=== PATIENT | female | born 1975 | race Caucasian/White ===

== ENCOUNTER 2021-12-07 07:08 | Day surgery (SDC) | payer BC, SELFPAY ==
[2021-12-07] VITALS (11 sets, daily range): BP systolic 104–142; BP diastolic 51–92; PULSE 80–98; RESP 12–20; TEMP 36.4–36.9; O2SAT 94–100
--- NOTE | ~2021-12-07 | CT_ITS ---
EXAMINATION: CT abdomen pelvis w con DATE: 12/07/2021 08:34 INDICATION: Low abdominal pain. TECHNIQUE: Computed tomography (CT) of the abdomen and pelvis was performed with 100 mL Omnipaque 350 intravenous contrast. Automated exposure control and iterative reconstruction technique were employe d. The dose-length product was 1087.52 mGy-cm. COMPARISON: CT abdomen and pelvis 08/15/2011 FINDINGS: The visualized portions of the lung bases demonstrate mild atelectasis. No pleural effusion . The heart size is normal. No pericardial effusion. There is diffuse hepatic steatosis. The gallblad sinai, spleen, pancreas, adrenal glands are normal. There is cortical thinning of the kidneys. There is diverticulosis of the colon without evidence of diverticulitis. There are no dilated loops of bowel. There is gas in the lumen of the base of the appendix. The diameter of the appendix is 10 mm. There is scarring adjacent to the appendix. There are no pathologically enlarged lymph nodes. There is no f ree intraperitoneal fluid. There is severe lower lumbar spondylosis. There are Schmorl's nodes at mul tiple levels. IMPRESSION: 1. Appendiceal diameter of 10 mm, which is indeterminate for acute appendicitis. Reviewed, dictated and finalized at location A. IMPRESSION: 1. Appendiceal diameter of 10 mm, which is indeterminate for acute appendicitis .
--- NOTE | 2021-12-07 07:34 | ED.GENADULT ---
HPI - General Adult General Chief complaint: Abdominal Pain Stated complaint: lower abd pain Time Seen by Provider: 12/07/21 07:14 History of Present Illness HPI narrative: 46-year-old female presenting to the emergency department for evaluation of lower abdominal cramping. Patient states symptoms did start yesterday. Patient does report associated nausea vomiting. Patient states that sometimes she has the urge to have a bowel movement but cannot. Patient states this is not new to today. Patient did have diagnosis of a perforated appendix but had a drain placed and did not have surgery to remove the appendix. Patient was supposed to schedule an appointment to have an outpatient appendectomy but states that she canceled it. Patient was in May and she was treated at [facility]. Patient did not have follow-up for her appendectomy because she was feeling improved. Related Data Allergies Allergy/AdvReac Type Severity Reaction Status Date / Time No Known Allergies Allergy Mild Verified 12/07/21 07:20 Review of Systems Review of Systems: CONSTITUTIONAL: Denies fever, chills, or sweats. EYES: Denies visual changes, redness, or discharge. ENT: Denies rhinorrhea, congestion, sore throat, or otalgia. CARDIOVASCULAR: Denies chest pain, palpitations, or edema. RESPIRATORY: Denies cough or dyspnea. GASTROINTESTINAL: Lower abdominal pain with associated nausea vomiting GENITOURINARY: Denies dysuria or hematuria. SKIN: Denies rash or itching. MUSCULOSKELETAL: Denies back pain, joint pain, or myalgia. NEUROLOGIC: Denies headache, numbness, or weakness. [facility] Past Medical History Medical History (Updated 12/07/21 @ 17:20 by Mark Davey MD) Hypertension Mixed hyperlipidemia Obesity (BMI 30-39.9) Tobacco abuse Surgical History Surgical History History of colonoscopy with polypectomy August 2021 Family History Family History Other Diabetes mellitus Hypertension Social History Social History Years smoked: 22 Smoking status: Current every day smoker Tobacco type: cigarettes Second hand tobacco smoke exposure: Yes Alcohol intake: current Alcohol use details: Socially Substance use: never Substance use type: does not use Living arrangements: with family Occupation/Education: occupation Additional occupation/education comments: [employer] Gender identity (if verbalized by the patient): Female Sexual Orientation (if Verbalized by the Patient): Straight or Heterosexual Spiritual care concerns: No Agree to blood products: Yes Exam Narrative: APPEARANCE: Well appearing, no pain, no distress, well-nourished. HEAD: normocephalic, atraumatic. EYES: PERRLA/EOMI, conjunctivae clear. NOSE: Normal no drainage NECK: Supple. No adenopathy, no masses. RESPIRATORY: Airway patent, respirations nonlabored. Clear to auscultation bilaterally, no rales, rhonchi, wheezing. CARDIOVASCULAR: Regular rate and rhythm without murmurs rubs or gallops. ABDOMINAL: Soft, lower abdominal tenderness to palpation MUSCULOSKELETAL: Moves all extremities. Strength/ROM intact, No edema, No calf tenderness. NEURO: Alert. Cranial nerves II through XII intact. Grossly intact SKIN: Warm, dry. Normal Color Course Course Emergency Course: Case was discussed with surgery due to her previous history of appendicitis and current CT scan I possible appendicitis. Patient was treated with Zosyn. Vital Signs Vital signs: Vital Signs Temperature 97.9 F 12/07/21 07:20 Pulse Rate 98 12/07/21 07:20 Respiratory Rate 16 12/07/21 07:20 Blood Pressure 142/92 H 12/07/21 07:20 Pulse Oximetry 100 12/07/21 07:20 Temperature 97.5 F L 12/07/21 13:52 Pulse Rate 80 12/07/21 13:52 Respiratory Rate 20 12/07/21 13:52 Blood Pressure 1
[2021-12-07 07:38] LABS: Appearance Urine Clear (Clear); Bilirubin Urine Negative (Negative); Blood Urine 2+ (Negative); Color Urine Yellow (Yellow); Glucose Urine UA Negative (Negative); Ketones Urine Negative (Negative); Leukocyte Esterase Ur Negative LEU/UL (Negative); Nitrate Urine Negative (Negative); Protein Urine 3+ mg/dL (Negative); Urobilinogen Urine 0.2 mg/dL (<2.0); pH Urine 5.5 (5.0-9.0)
[2021-12-07 07:42] LABS: Add Urine Microscopic? YES
[2021-12-07 07:43] LABS: Mucus Urine Few /lpf; Squamous Epithelial Cell Urine Few /hpf (Few)
[2021-12-07 08:09] LABS: Basophils Absolute Auto 0.1 K/mm3 (0.0-0.1); Basophils Percent Auto 0.9 % (0.2-1.2); Eosinophils Absolute Auto 0.2 K/mm3 (0-0.3); Eosinophils Percent Auto 1.9 % (0-4.4); Hematocrit 45.9 % (37.0-47.0); Hemoglobin 15.4 g/dL (12.0-15.0); Immature Granulocyte Absolute 0.09 K/mm3 (0.00-0.031); Immature Granulocyte Percent A 0.9 % (0-0.5); Lymphocytes Absolute Auto 3.16 K/mm3 (0.9-3.2); Lymphocytes Percent Auto 30.8 % (18.3-44.2); Mean Corpuscular HGB Conc 33.6 g/dl (32-36); Mean Corpuscular Hemoglobin 30.7 pg (26-34); Mean Corpuscular Volume 91.4 fl (80-100); Mean Platelet Volume 10.1 fl (7.4-10.4); Monocytes Absolute Auto 0.5 K/mm3 (0.1-0.6); Monocytes Percent Auto 5.3 % (2.6-8.5); Neutrophils Absolute Auto 6.2 K/mm3 (1.3-6.7); Neutrophils Percent Auto 60.2 % (45.5-73.1); Platelet Count Result 306 k/mm3 (150-375); Red Blood Count 5.02 M/mm3 (4.2-5.4); Red Cell Distribution Width 13.9 % (11.5-14.5); White Blood Count 10.3 K/mm3 (4.5-10.0)
[2021-12-07 08:18] LABS: Alanine Aminotransferase 30 U/L (6-35); Albumin Level 4.4 g/dL (3.5-5.1); Alkaline Phosphatase 91 U/L (38-126); Anion Gap 15 mmol/L (8-16); Aspartate Amino Transferase 34 U/L (14-36); Bilirubin,Total 0.5 mg/dL (0.2-1.3); Blood Urea Nitrogen 13 mg/dL (7-17); Carbon Dioxide 23 mmol/L (22-30); Chloride 101 mmol/L (98-107); Estimated CRCL calculation 83 ml/min; Estimated Glomerular Filt Rate > 60; Glucose 117 mg/dL (65-110); Lipase 57 U/L (23-300); Potassium 4.2 mmol/L (3.4-5.0); Sodium 139 mmol/L (137-145)
[2021-12-07] MEDS: SODIUM CHLORIDE 0.9% IV 1,000 ML 999 ML IV CONT (09:46)
--- NOTE | 2021-12-07 09:47 | PM.HPGS ---
History of Present Illness History of Present Illness Consent: Risks, benefits, and alternatives have been discussed and questions answered. Patient agrees to proceed with procedure. Chief complaint: lower abd pain Narrative: Shekhar Vega is a 46 year old female with a history of hypertension, who was treated for acute perforated appendicitis with abscess in May of 2021 at [facility]. She was hospitalized for 12 days with IV antibiotics and had transgluteal percutaneous drainage of an intra-abdominal abscess. The drain was eventually removed. She was followed up by surgery as an outpatient. She underwent a colonoscopy with benign polypectomy of rectal polyps at [facility] in August of 2021. She reports being told her appendix still appeared inflamed and ?infected?. She was not given any additional antibiotics. Reviewing the colonoscopy report, there is no abnormalities mentioned of the appendix or cecum. She has otherwise been told she has been healing well. They had repeated a CT scan in October, that reportedly showed she was still healing but no other issues. They offered her surgery that could be scheduled this month, but she declined due to starting a new job. She chose to monitor and watch for symptoms. Last night, around midnight, she noticed an onset of mild lower abdominal pain. She was able to go to sleep, but when she woke up this morning, her abdominal pain was worse. She had associated nausea, but no vomiting. No fever or chills. Her pain felt similar to her previous episode of appendicitis, therefore she came to [facility] for evaluation. Labs showed a white blood cell count of 10,300. Urinalysis showed 3+ protein, 2+ blood, 6-10 rbc's, 4-6 wbc's, few epithelial squamous cells. She denies any dysuria, hematuria, frequency, or urgency. She no longer has periods and was told she is premenopausal. CT scan of the abdomen and pelvis showed an appendix dilated to 10 mm with scarring. Other incidental findings noted. Our service was consulted by the ED physician. She is now seen in the ER. Her abdominal pain is tolerable when lying still, but is aggravated by movement, palpation, and bending. No previous abdominal surgeries. Review of Systems Review of Systems: All systems reviewed & are unremarkable except as noted in HPI and below Constitutional: Constitutional: Reports as per HPI, Reports no additional constitutional complaints, Denies chills, Denies fatigue and Denies fever(s) Eyes: Eyes: Reports no additional eye complaints ENT: Reports system reviewed and no additional complaints, except as documented and Reports Normal hearing present Cardiovascular: Cardiovascular: Reports no additional cardiovascular complaints, Denies chest pain and Denies leg edema Respiratory: Respiratory: Reports no additional respiratory complaints, Denies cough and Denies dyspnea Gastrointestinal: Gastrointestinal: Reports as per HPI, Reports no additional gastrointestinal complaints, Reports abdominal pain, Denies bloating, Denies hematochezia, Denies change in bowel habits, Denies change in stool character, Denies constipation, Denies diarrhea, Denies loose stools, Reports nausea and Denies vomiting Genitourinary: Genitourinary: Reports no additional female genitourinary complaints, Denies hematuria, Denies nocturia and Denies dysuria Musculoskeletal: Musculoskeletal: Reports no additional musculoskeletal complaints and Denies back pain Integumentary/Breasts: Skin/Breast: Reports system reviewed and no additional complaints, except as docu, Denies wounds and Denies jaundice Neurologic: Reports system reviewed and no additional complaints, except as documented, Denies dizziness, Denies focal weakness, Denies numbness and Denies tingling PMFSH Past Medical History Medical History Hypertension Mixed hyperlipidemia Surgical History Surgical History (Reviewed 12/07/21 @ 10:01 by
[2021-12-07] MEDS: ONDANSETRON INJ 4 MG/2 ML VIAL IV PUSH ×2 (10:07→20:30)
[2021-12-07] MEDS: SODIUM CHLORIDE 0.9% IV 1,000 ML 125 ML IV CONT (11:59)
[2021-12-07] MEDS: LACTATED RINGERS 1,000 ML 30 ML IV CONT ×3 (13:50→21:35)
--- NOTE | 2021-12-07 14:15 | WPDHPUPDATE1 ---
History and Physical Update Update Date/Time: 12/07/21 14:15 History and Physical has been reviewed, including an updated exam of the patient. There are NO changes in the patient's condition. Risks, benefits, and alternatives of a laparoscopic appendectomy possible open have been discussed and questions answered. Patient agrees to proceed with procedure.
[2021-12-07] MEDS: HYDROGEN PEROXIDE 3% SOLN(*SP) 473 ML BOTTLE 30 ML IRRIGATION (14:41)
[2021-12-07] MEDS: CHLORHEXIDINE GLUCONATE 4% SOL 120 ML BTL 1 APPLIC TOPICAL (15:27)
--- NOTE | 2021-12-07 17:19 | WPDANESEPPF ---
Anes - Initial Pre Proc Eval Procedure: Operation Date: 12/07/21 17:00 Proposed Procedures p Laparoscopic Appendectomy - Andrea Argueta MD Date/Time: 12/07/21 17:19 Surgeon: Andrea Argueta MD Pre Op Diagnosis: lower abd pain Patient Data Age: 46 Gender: F Height: 1.57 m Weight: 93 kg Last Vital Signs Temp 36.4 C L 12/07/21 13:52 Pulse 80 12/07/21 13:52 Resp 20 12/07/21 13:52 BP 115/69 12/07/21 13:52 Pulse Ox 98 12/07/21 13:52 O2 Del Method Room Air 12/07/21 13:52 Allergies Allergy/AdvReac Type Severity Reaction Status Date / Time No Known Allergies Allergy Mild Verified 12/07/21 07:20 Home Medications Medication Instructions Recorded Confirmed Type amlodipine 10 mg tablet 10 mg PO DAILY #90 tabs 06/08/21 12/07/21 Rx atenolol 100 mg tablet 100 mg PO DAILY #90 tabs 06/08/21 12/07/21 Rx Laboratory Tests 12/07/21 12/07/21 12/07/21 07:29 08:02 08:02 WBC 10.3 K/mm3 H K/mm3 (4.5-10.0) RBC 5.02 M/mm3 M/mm3 (4.2-5.4) Hgb 15.4 g/dL H g/dL (12.0-15.0) Hct 45.9 % % (37.0-47.0) MCV 91.4 fl fl (80-100) MCH 30.7 pg pg (26-34) MCHC 33.6 g/dl g/dl (32-36) RDW 13.9 % % (11.5-14.5) Plt Count 306 k/mm3 k/mm3 (150-375) MPV 10.1 fl fl (7.4-10.4) Immature Gran % (Auto) 0.9 % H % (0-0.5) Neut % (Auto) 60.2 % % (45.5-73.1) Lymph % (Auto) 30.8 % % (18.3-44.2) [place] % (Auto) 5.3 % % (2.6-8.5) Eos % (Auto) 1.9 % % (0-4.4) Baso % (Auto) 0.9 % % (0.2-1.2) Lymph # (Auto) 3.16 K/mm3 K/mm3 (0.9-3.2) [place] # (Auto) 0.5 K/mm3 K/mm3 (0.1-0.6) Eos # (Auto) 0.2 K/mm3 K/mm3 (0-0.3) Baso # (Auto) 0.1 K/mm3 K/mm3 (0.0-0.1) Abs Immat Gran (auto) 0.09 K/mm3 H K/mm3 (0.00-0.031) Absolute Neuts (auto) 6.2 K/mm3 K/mm3 (1.3-6.7) Absolute Nucleated RBC 0.0 K/mm3 K/mm3 (0.0-0.012) Nucleated RBC % 0.0 % % (0.0-0.2) Sodium 139 mmol/L mmol/L (137-145) Potassium 4.2 mmol/L mmol/L (3.4-5.0) Chloride 101 mmol/L mmol/L (98-107) Carbon Dioxide 23 mmol/L mmol/L (22-30) Anion Gap 15 mmol/L mmol/L (8-16) BUN 13 mg/dL mg/dL (7-17) Creatinine 0.80 mg/dL mg/dL (0.7-1.0) Estim Creat Clear Calc 83 ml/min ml/min Estimated GFR > 60 (59 - ) Glucose 117 mg/dL H mg/dL (65-110) Calcium 9.0 mg/dL mg/dL (8.4-10.2) Total Bilirubin 0.5 mg/dL mg/dL (0.2-1.3) AST 34 U/L U/L (14-36) ALT 30 U/L U/L (6-35) Alkaline Phosphatase 91 U/L U/L (38-126) Total Protein 8.0 g/dL g/dL (6.3-8.2) Albumin 4.4 g/dL g/dL (3.5-5.1) Lipase 57 U/L U/L (23-300) Urine Color Yellow (Yellow) Urine Appearance Clear (Clear) Urine pH 5.5 (5.0-9.0) Ur Specific [place] 1.020 (1.001-1.035) Urine Protein 3+ mg/dL H mg/dL (Negative) Urine Glucose (UA) Negative mg/dL mg/dL (Negative) Urine Ketones Negative mg/dL mg/dL (Negative) Ur Blood (Man) 2+ H (Negative) Urine Nitrate Negative (Negative) Urine Bilirubin Negative (Negative) Urine Urobilinogen 0.2 mg/dL mg/dL (<2.0) Leukocyte Esterase Rfl Negative [place]/UL PAL[place]/UL (Negative) Urine RBC 6-10 /hpf H /hpf (0-2) Urine WBC 4-6 /hpf H /hpf Ur Squamous Epith Cells Few /hpf /hpf (Few) Urine Mucus Few /lpf H /lpf Patient hx anesthesia problems: none Family hx anesthesia problems: none Results Review: All pre-operative results and documents have been reviewed as part of the pre-operative evaluation. PMFSH Past Medical History Medical His
[2021-12-07] MEDS: ceFAZolin 2 GM/D5W 50 ML 2 GM/50 ML BAG IVPB (18:34)
[2021-12-07] MEDS: metroNIDAZOLE 500 MG/ISO 100ML 500 MG/100 ML BAG 100 MG IVPB (18:36)
[2021-12-07] MEDS: fentaNYL CITRATE INJ (*CRX) 100 MCG/2 ML VIAL 25 MCG IV PUSH ×8 (20:36→21:09)
--- NOTE | 2021-12-07 20:50 | W.PM.PROC2 ---
Procedure Note - Detailed Date of Procedure 12/07/21 Pre-op Diagnosis 1. Acute recurrent uncomplicated appendicitis 2. Skin lesion, (suspected seborrheic keratosis) within the umbilical skin. Post-op Diagnosis Same Procedure Performed 1. laparoscopic appendectomy 2. Elliptical excision of a skin lesion within the umbilicus.{. Excision of a small skin lesion within the lower half of the umbilicus with a vertical elliptical excision (less than 5 mm in size)}. Surgeon Andrea Argueta MD [employer] Alycia RODRIGUEZ. [place] [employer] Anesthesia General Indications Patient had elevated white count abdominal pain and a CT scan suggesting a 10 mm appendix with possible scarring around it. (patient also has a previous history 6 months ago of acute perforated appendicitis with abscess status post treatment with antibiotics and percutaneous drainage of an abscess). Findings Densely adherent chronically inflamed short appendix adherent to mesentery of the small bowel, the back of the uterus, the right ovary, and the right fallopian tube. No signs of current perforation or abscess. Description of Procedure The patient was seen again in the Holding Room. The risks, benefits, complications, treatment options, and expected outcomes were discussed with the patient and/or family. The possibilities of reaction to medication, pulmonary aspiration, perforation of viscus, bleeding, recurrent infection, finding a normal appendix, the need for additional procedures, failure to diagnose a condition, and creating a complication requiring transfusion or operation were discussed. There was concurrence with the proposed plan and informed consent was obtained. The site of surgery was properly noted/marked. The patient was taken to Operating Room, and a time out was preformed which identified this as the proper patient, and the procedure verified as laparoscopic appendectomy, possible open. The patient was placed in the supine position and general anesthesia was induced, along with placement of an orogastric tube, SCD hose, and a Delaney catheter. The abdomen was prepped and draped in a sterile fashion. Preoperatively it was noticed that the patient appeared to have a small skin lesion within the lower portion of the umbilicus. This was excised with a 15 blade knife. This small vertical ellipse was sent as specimen with suspicion that it was a skin lesion probably a seborrheic keratosis. The 5 mm umbilical incision was made as stated above and the peritoneal cavity was accessed using the Veress needle technique. Once the abdomen was insufflated to 14 mmHg pressure a 5 mm XL trocar over the 0? 5 mm scope was carefully twisted into the abdomen via the umbilicus. Because the patient had had previous surgeries the Ann cannula technique was utilized. To do this I made a incision in the umbilical area and carried this down to the midline fascia. Under direct vision the midline fascia was incised and the peritoneum entered under direct vision after placing 2 sutures of 0 Vicryl in the fascia on either side of midline. The Ann cannula was then slid into place into the peritoneum under direct vision. The pneumoperitoneum was then established to steady pressure of 14 mm Hg. A 12 mm laparoscopic port was placed through a transverse suprapubic incision. An additional 5 mm cannula was then placed in the left lower quadrant of the abdomen at a level half way between the umbilicus and pubic symphysis under direct vision. A careful evaluation of the entire abdomen was carried out. The patient was placed in Trendelenburg and left lateral decubitus position. The small intestines were retracted in the cephalad and left lateral direction away from the pelvis and right lower quadrant. The patient was found to have an enlarged and inflamed appendix that was extending iinto the right side of the pelvis. There was no evidence of perforation. There was evidence of the previous inflammation with somewhat thick
[2021-12-07] MEDS: HYDROmorphone HCL INJ (*CRX) 1 MG/ML SYR 0.25 MG IV PUSH ×6 (21:18→21:44)
[2021-12-07] MEDS: KETOROLAC 30 MG/ML VIAL (*BKC) IV PUSH (21:28)
[2021-12-07] MEDS: oxyCODONE HCL (*CRX) 5 MG TAB IR PO (22:30)
== END 2021-12-07 22:50 | disposition home or self-care (01) ==
LOC: ANHED 09:16 → ANHSURGERY 09:20
PROVIDERS: Emergency Provider Emergency Medicine; PCP Family Medicine Adolescent Medicine; Visit Provider Surgery
PROC: 0DTJ4ZZ Resection of Appendix, Percutaneous Endoscopic Approach (ICD-10-PCS; CPT 44970; principal; 2021-12-07 17:00)
DX: K38.2 Diverticulum of appendix (principal); L82.1 Other seborrheic keratosis; I10 Essential (primary) hypertension; E78.2 Mixed hyperlipidemia; E66.9 Obesity, unspecified; Z68.37 Body mass index [BMI] 37.0-37.9, adult; F17.210 Nicotine dependence, cigarettes, uncomplicated
CPT/HCPCS: 44970; 11400; 36415; 74177; 80053; 81001; 81025; 83690; 85025; 88304; 88305; A9270; J0690; J1100; J1170; J1885; J2250; J2405; J2543; J2704; J2710; J3010; J7030; J7120; Q9967

== ENCOUNTER → 2022-02-08 09:04 | Outpatient (CLI) | payer BC, SELFPAY ==
--- NOTE | ~2022-02-08 | DEXA_ITS ---
Bone Density Report Name: JUAN M POLANCO Age: 46 Sex: Female Ethnicity: White Date of : 1975 Indication: postmenopausal; Referring Provider: DIONNE MCCRAY Study: Bone densitometry was performed. Exam Date: February 08, 2022 Accession number: [id number] Bone Density: Region BMD T-score Z-score Classification AP Spine (L1-L4) 0.952 -0.9 -0.4 Normal Femoral Neck (Left) 0.816 -0.3 0.1 Normal Total Hip (Left) 0.982 0.3 0.6 Normal Femoral Neck (Right) 0.903 0.5 0.9 Normal Total Hip (Right) 0.979 0.3 0.6 Normal Total Hip Mean 0.981 0.3 0.6 Normal World Health Organization criteria for BMD impression classify patients as: Normal (T-score at or above -1.0), Osteopenia (T-score between -1.0 and -2.5), or Osteoporosis (T-score at or below -2.5). 10-year Fracture Risk: FRAX not reported because: All T-scores for Spine Total, Hip Total, Femoral Neck at or above -1.0 Treated for osteoporosis Clinical Information Provided by Patient: Smokes Is being treated for osteoporosis Has used the following medications: HRT (i.e. estrogen/hormone therapy) Patient maximum height was 62.2 Menopause Age: 44 No regular weight bearing exercise Does not regularly consume dairy products Drinks caffeinated beverages Onset of menses at age 15 Number of children 0 Impression: The patient has normal bone mass. The patient has risk factors, including: smoking. Discussion: It is important to ask patients whether they are taking their medications and to encourage continued and appropriate compliance with their osteoporosis therapies to reduce fracture risk. It is also important to review their risk factors and encourage appropriate calcium and vitamin D intakes, exercise, fall prevention and other lifestyle measures. Follow-Up: Consider a repeat BMD and Vertebral Fracture Assessment (VFA) exam in 2 years or sooner if medically necessary, to reassess this patient's status. Reported by: EDIN on 02/08/2022 9:27:00 AM. Reviewed, dictated and finalized at location A. MARILYN
== END ==
PROVIDERS: PCP Family Medicine Adolescent Medicine; Visit Provider Physician Assistant
DX: E28.319 Asymptomatic premature menopause (principal)
CPT/HCPCS: 77080